=== PATIENT | female | born 1985 | race Caucasian/White ===

== ENCOUNTER 2017-06-22 20:26 | Emergency (ER) | payer OTHER ==
[~2017-06-22] VITALS: Ht 160 cm; Wt 132.0 kg
[~2017-06-22 20:26] MED LIST: ACE3 PO; IBU600 PO; IBUP800T37 PO; OXYC-865 PO
[2017-06-22] MEDS ORDERED: ANAPHYLAXIS KIT 1 EA ONE (20:33)
[2017-06-22] MEDS ORDERED: diphenhydrAMINE 50 MG/ML VIAL IVP ONE (20:35)
[2017-06-22] MEDS ORDERED: methylPREDNIS SUCC 125 MG/2ML IVP ONE (20:35)
[2017-06-22] MEDS ORDERED: FAMOTIDINE(*) 20MG/50ML PREMIX 50 ML IVPB ONE (20:35)
[2017-06-22] MEDS ORDERED: EPINEPHrine 0.3 MG SYR IM ONLY ONE (20:35)
[2017-06-22] MEDS ORDERED: NS(*) 0.9% 1000 ML BAG 1,000 ML IV ONE (20:35)
--- NOTE | 2017-06-22 20:47 | ER Report ---
History and Physical Time Seen By MD: 20:32 Hx. of Stated Complaint: PATIENT HAVING AN ALLERGIC REACTION, IT WAS ORIGINALLY LAST SATURDAY, SHE HAD STARTED WITH HER MOUTH AND THROAT, SHE SAW HER DR, THEY STARTED HER ON ANTIBIOTIC(CEPHELEXIN), THEN THE RASH GOT WORSE, THEY GAVE HER METHYLPREDNISONE AND STILL THE REACTION GOT WORSE, SHE HAS TROUBLE SWOLLING, FEELING SHORT OF BREATH, HAS RASH, HIVES, AND SWELLING. PATIENT HAS USING BENADRYL, CLARITIN AND CORTISONE CREAM. HPI/ROS CHIEF COMPLAINT: Allergic reaction HISTORY OF PRESENT ILLNESS: This is a 31 year old female. She said that this started last Saturday, 8 days ago. Rash throughout her body with itching. She started having soreness in mouth and throat. Started on Cephalexin and Medrol dosepack by her regular doctor. Rash has been intermittent and worsens tonight. She feels trouble swallowing. Feels short of breath. Worsened itching and hives tonight. Has been using benadryl and claritin and cortisone cream. No new foods , soaps, detergents, fabric softeners, makeup, chemicals, drugs, etc. They have been unable to tell what has caused this. No prior allergic reactions. REVIEW OF SYSTEMS: Constitutional: No fever or chills. Eyes: No vision changes. ENT: As above. Cardiovascular: No chest pain. No palpitations. Respiratory: As above. Gastrointestinal: No abdominal pain. Some nausea. Genitourinary: No dysuria. No frequency Musculoskeletal: No musculoskeletal pain. Skin: As above. Neurological: No numbness. No weakness. Allergies: Coded Allergies: cephalexin (Verified Allergy, Intermediate, THROAT SWELLING, HIVES, RASH. , 06/22/17) Home Meds Active Scripts Prednisone (PREDNISONE) 20 Mg Tablet, 60 MG PO QDAY for 4 Days, #12 TAB 0 Refills Prov:LUKE TEJADA MD 06/22/17 Discontinued Reported Medications Oxycodone Hcl/Acetaminophen (PERCOCET 5-325 MG TABLET) 1 Each Tablet, 1 - 2 EACH PO Q4H Y, #30 TAKE 1 TABLET WITH 1 TABLET TYLENOL FOR PAIN; OR FOR MORE SEVERE PAIN TAKE 2 TABLETS EVERY 4 HOURS NEEDED. 03/19/13 Ibuprofen (IBUPROFEN) 800 Mg Tablet, 1 TAB PO Q8H Y TAKE 800MG BY MOUTH EVERY EIGHT HOURS 03/19/13 Reviewed Nurses Notes: Yes Hx Smoking: No Exposure to Second Hand Smoke?: No Hx Substance Use Disorder: No Hx Alcohol Use: Yes (OCCASSIONALLY) Constitutional Vital Sign - Last 24 Hours 06/22/17 06/22/17 06/22/17 06/22/17 20:33 20:41 20:56 21:11 Temp 98.3 Pulse 109 102 93 90 Resp 16 B/P (MAP) 129/107 Pulse Ox 93 94 95 94 06/22/17 06/22/17 06/22/17 06/22/17 21:26 21:41 21:56 22:31 Pulse 91 89 96 92 Pulse Ox 91 91 90 90 06/22/17 06/22/17 06/22/17 06/22/17 23:01 23:06 23:21 23:34 Pulse 99 95 98 85 Resp 16 B/P (MAP) 138/88 (105) Pulse Ox 90 90 92 92 O2 Delivery Room Air Physical Exam General Appearance: The patient is alert. Anxious because of symptoms. Eyes: Pupils are equal, round. No pallor, injection or icterus. ENT: Mucous membranes are moist. Normal oral mucosa. Posterior oropharynx is normal. Neck: Supple and non tender. Respiratory: Breathing easily and unlabored. Lungs are clear to auscultation. Cardiovascular: Regular rate and rhythm. No murmurs, gallops or rubs. Normal capillary refill. Gastrointestinal: Abdomen is soft and non tender. Nondistended. Normal active bowel sounds. Neurological: Alert and oriented x3. No focal neurologic deficits. Skin: Urticarial lesions throughout the body, associated itching. Musculoskeletal: Extremities are nontender. Full range of motion. DIFFERENTIAL DIAGNOSIS: After history and physical exam, differential diagnosis was considered for allergic reaction. Will begin with an epinephrine IM injection and give other medications including Benadryl, Solu-Medrol and Pepcid IV along with IV fluids. Medical Decision Making Data Points Result Diagram: 06/22/17204006/22/172040 Laboratory Hematology Test 06/22/17 20:41 Red Blood Count 5.43 M/uL (4.17-5.56) Mean Corpuscular Volume 88.7 fL (80.0-96.0) Mean Corpuscular Hemoglobin 30.0 pg (26.0-33.0) Mean Corpuscular Hemoglobin Concent 33.9 g/dL (32.0-36.0) Red Cell Distribution Width 14.7 % (11.5-14.5) Mean Platelet Volume 9.9 fL (7.2-11.1) Neutrophils (%) (Auto) 85.6 % (39.4-72.5) Lymphocytes (%) (Auto) 8.7 % (17.6-49.6) Monocytes (%) (Auto) 4.3 % (4.1-12.4) Eosinophils (%) (Auto) 0.5 % (0.4-6.7) Basophils (%) (Auto) 0.9 % (0.3-1.4) Nucleated RBC Relative Count (auto) 0.1 /100WBC Neutrophils # (Auto) 15.5 K/uL (2.0-7.4) Lymphocytes # (Auto) 1.6 K/uL (1.3-3.6) Monocytes # (Auto) 0.8 K/uL (0.3-1.0) Eosinophils # (Auto) 0.1 K/uL (0.0-0.5) Basophils # (Auto) 0.2 K/uL (0.0-0.1) Nucleated RBC Absolute Count (auto) 0.02 K/uL Erythrocyte Sedimentation Rate 12 mm/HOUR (0-20) Sodium Level 136 mmol/L (137-145) Potassium Level 3.9 mmol/L (3.5-5.0) Chloride Level 103 mmol/L (98-107) Carbon Dioxide Level 22 mmol/L (22-31) Blood Urea Nitrogen 20 mg/dl (7-18) Creatinine 0.90 mg/dl (0.52-1.04) Glomerular Filtration Rate Calc > 60.0 Random Glucose 169 mg/dl (75-110) Calcium Level 8.6 mg/dl (8.4-10.2) Total Bilirubin 0.6 mg/dl (0.2-1.3) Aspartate Amino Transf (AST/SGOT) 19 U/L (0-35) Alanine Aminotransferase (ALT/SGPT) 34 U/L (0-56) Alkaline Phosphatase 99 U/L (0-126) C-Reactive Protein 8.8 mg/dl (<1.0) Total Protein 6.7 gm/dl (6.3-8.2) Albumin 3.6 g/dl (3.5-5.0) Human Chorionic Gonadotropin, Qual Negative (NEGATIVE) Chemistry Test 06/22/17 20:41 White Blood Count 18.1 k/uL (4.5-11.0) Red Blood Count 5.43 M/uL (4.17-5.56) Hemoglobin 16.3 g/dL (12.0-16.0) Hematocrit 48.2 % (34.0-47.0) Mean Corpuscular Volume 88.7 fL (80.0-96.0) Mean Corpuscular Hemoglobin 30.0 pg (26.0-33.0) Mean Corpuscular Hemoglobin Concent 33.9 g/dL (32.0-36.0) Red Cell Distribution Width 14.7 % (11.5-14.5) Platelet Count 249 K/uL (150-450) Mean Platelet Volume 9.9 fL (7.2-11.1) Neutrophils (%) (Auto) 85.6 % (39.4-72.5) Lymphocytes (%) (Auto) 8.7 % (17.6-49.6) Monocytes (%) (Auto) 4.3 % (4.1-12.4) Eosinophils (%) (Auto) 0.5 % (0.4-6.7) Basophils (%) (Auto) 0.9 % (0.3-1.4) Nucleated RBC Relative Count (auto) 0.1 /100WBC Neutrophils # (Auto) 15.5 K/uL (2.0-7.4) Lymphocytes # (Auto) 1.6 K/uL (1.3-3.6) Monocytes # (Auto) 0.8 K/uL (0.3-1.0) Eosinophils # (Auto) 0.1 K/uL (0.0-0.5) Basophils # (Auto) 0.2 K/uL (0.0-0.1) Nucleated RBC Absolute Count (auto) 0.02 K/uL Erythrocyte Sedimentation Rate 12 mm/HOUR (0-20) Glomerular Filtration Rate Calc > 60.0 Calcium Level 8.6 mg/dl (8.4-10.2) Total Bilirubin 0.6 mg/dl (0.2-1.3) Aspartate Amino Transf (AST/SGOT) 19 U/L (0-35) Alanine Aminotransferase (ALT/SGPT) 34 U/L (0-56) Alkaline Phosphatase 99 U/L (0-126) C-Reactive Protein 8.8 mg/dl (<1.0) Total Protein 6.7 gm/dl (6.3-8.2) Albumin 3.6 g/dl (3.5-5.0) Human Chorionic Gonadotropin, Qual Negative (NEGATIVE) EKG/Imaging Imaging CT of the chest, with contrast: Indication: Difficulty breathing and swallowing. Technique: Helical CT was performed through the chest following IV contrast enhancement with 75 cc of Isovue 370. Multiplanar reconstructions are reviewed. One of the following dose optimization techniques was utilized in the performance of this exam: Automated exposure control; adjustment of the mA and/ or kV according to the patient's size; or use of an iterative reconstruction technique. Specific details can be referenced in the facility's radiology CT exam operational policy. Comparison: None. Lung quinones: There is a tiny peripheral calcification in the right upper lobe, consistent with granuloma. No other nodular opacities are identified. There are minimal linear atelectatic opacities at the lung bases. There are no signs of parenchymal consolidation or volume loss. The trachea and large central airways appear normal. Pleural spaces: There is no evidence of effusion, thickening, calcification, or mass. Mediastinum: There is no evidence of mass, lymph node enlargement, or fluid. There may be a small hiatal hernia. Heart and vascular structures: Within normal limits. Skeletal structures: There is mild degenerative disc disease in the mid and lower thoracic spine. No acute skeletal deformity is identified. Upper abdomen: Unremarkable, as visualized. IMPRESSION: Unremarkable study. Report Dictated By: Cruz Ray MD at 06/22/2017 10:[address] of the neck with contrast: Indication: Difficulty breathing and swallowing. Technique: Helical CT was performed through the neck following IV contrast enhancement with 75 cc of Isovue-370. Multiplanar reconstructions are reviewed. One of the following dose optimization techniques was utilized in the performance of this exam: Automated exposure control; adjustment of the mA and/ or kV according to the patient's size; or use of an iterative reconstruction technique. Specific details can be referenced in the facility's radiology CT exam operational policy. Comparison: None. Findings: There is no evidence of soft tissue mass, fluid collection, or cyst. A few unenlarged lymph nodes are present on both sides of the neck. There is narrowing of the airway at the level of the aryepiglottic folds, which may be related to infection. The true vocal cords appear symmetrical and unremarkable. The epiglottis and tonsils are unremarkable, as visualized. The airway is otherwise unremarkable. The parotid, submandibular, and thyroid glands appear symmetrical and unremarkable. There is uniform enhancement of the visualized vascular structures. The skeletal structures are well mineralized and intact. The paranasal sinuses and mastoid air cells are clear. No fluid or soft tissue abnormality is observed in the auditory canals or middle ear cavities. Impression: There is narrowing of the airway at the level of the aryepiglottic folds, which may be related to infection. Direct visualization is recommended for further evaluation. Report Dictated By: Cruz Ray MD at 06/22/2017 10:41 PM ED Course/Re-evaluation Clinical Indication for ER IV: Hydration, IV Access ED Course Labs show a pre-renal pattern with the BUN/Cr ration being elevated. Recommended increased fluid intake. Leukocytosis likely due to current steroid use. All symptoms improved except for the difficulty swallowing. Rash has mostly resolved. Itching better. No shortness of breath. Still feels fullness of neck while swallowing. Because of this CT scan of chest and neck was obtained with some swelling in the area of epiglottis and vocal cords as noted above. Discussed this with the patient. Will continue on Prednisone, Benadryl, Claritin, Pepcid. Hold the Cephalexin. This may be a viral infection with allergic type reaction and will need to run its course. Recommended consideration of product specialist evaluation. ENT evaluation for the swelling in the throat recommended. Decision to Disposition Date: Jun 22, 2017 Decision to Disposition Time: 23:24 Depart Departure Latest Vital Signs Vital Signs Date Time Temp Pulse Resp B/P (MAP) Pulse Ox O2 Delivery O2 Flow Rate FiO2 06/22/17 23:34 85 16 138/88 (105) 92 Room Air 06/22/17 20:33 98.3 Impression: Primary Impression: Allergic reaction Condition: Improved Disposition: HOME OR SELF-CARE Referrals: MARK BINGHAM CNM (PCP) New Scripts Prednisone (PREDNISONE) 20 Mg Tablet 60 MG PO QDAY for 4 Days, #12 TAB 0 Refills Prov: LUKE TEJADA MD 06/22/17 Patient Instructions: General Allergic Reaction (ED) Additional Instructions: Take Prednisone 20mg tablets, take 3 tablets once a day for 4 more days. Keep taking Benadryl 25mg over the counter tablets, 1-2 tablets every 6 hours as needed for itching. You can also use Claritin twice a day. Take Pepcid 20mg over the counter tablets twice a day. Follow-up with Dr. Alejo. Consider follow-up evaluations with an product specialist and with ENT so that they can evaluated the swelling in the throat area seen on CT scan. Return to the ER for worsening symptoms over the weekend. Problem Qualifiers Primary Impression: Allergic reaction Encounter type: initial encounter Qualified Codes: T78.40XA - Allergy, unspecified, initial encounter LUKE TEJADA MD Jun 22, 2017 20:46
[2017-06-22] MEDS ORDERED: ONDANSETRON 4 MG/2 ML VIAL ONE (20:53)
[2017-06-22] MEDS ORDERED: ONDANSETRON 4 MG/2 ML VIAL IVP ONE (20:55)
[2017-06-22 21:03] LABS: PLATELET COUNT, AUTOMATED 249 K/uL (150-450)
[2017-06-22] MEDS ORDERED: IOPAMIDOL 76% 75 ML INFUS BTL 75 ML ONE (21:48)
[2017-06-22] MEDS ORDERED: NS 0.9% 20 ML SDV 60 ML ONE (21:49)
--- NOTE | 2017-06-22 22:58 | RADIOLOGY IMAGING REPORT ---
FACILITY: PATIENT NAME: Jayashree Sierra : 1985 MR: [id number] V: [id number] EXAM DATE: ORDERING PHYSICIAN: LUKE TEJADA TECHNOLOGIST: Location: [facility] - [place] Patient: Jayashree Sierra : 1985 Visit/Account:[id number] Date of Sevice: 06/22/2017 CT of the neck with contrast: Indication: Difficulty breathing and swallowing. Technique: Helical CT was performed through the neck following IV contrast enhancement with 75 cc of Isovue-370. Multiplanar reconstructions are reviewed. One of the following dose optimization techniques was utilized in the performance of this exam: Autom ated exposure control; adjustment of the mA and/or kV according to the patient's size; or use of an i terative reconstruction technique. Specific details can be referenced in the facility's radiology C T exam operational policy. Comparison: None. Findings: There is no evidence of soft tissue mass, fluid collection, or cyst. A few unenlarged lymph nodes are present on both sides of the neck. There is narrowing of the airway at the level of the ar yepiglottic folds, which may be related to infection. The true vocal cords appear symmetrical and unr emarkable. The epiglottis and tonsils are unremarkable, as visualized. The airway is otherwise unrema rkable. The parotid, submandibular, and thyroid glands appear symmetrical and unremarkable. There is uniform enhancement of the visualized vascular structures. The skeletal structures are well mineralized and i ntact. The paranasal sinuses and mastoid air cells are clear. No fluid or soft tissue abnormality is observed in the auditory canals or middle ear cavities. Impression: There is narrowing of the airway at the level of the aryepiglottic folds, which may be re lated to infection. Direct visualization is recommended for further evaluation. Report Dictated By: Cruz Ray MD at 06/22/2017 10:41 PM Report E-Signed By: Cruz Ray MD at 06/22/2017 10:54 PM WSN:[id number]
--- NOTE | 2017-06-22 23:04 | RADIOLOGY IMAGING REPORT ---
[place] [facility] [place] NAME: Jayashree Sierra : 1985 MR: [id number] V: [id number] EXAM DATE: ORDERING PHYSICIAN: LUKE TEJADA TECHNOLOGIST: Location: [facility] - [place] Patient: Jayashree Sierra : 1985 Visit/Account:[id number] Date of Sevice: 06/22/2017 CT of the chest, with contrast: Indication: Difficulty breathing and swallowing. Technique: Helical CT was performed through the chest following IV contrast enhancement with 75 cc of Isovue 370. Multiplanar reconstructions are reviewed. One of the following dose optimization techniques was utilized in the performance of this exam: Autom ated exposure control; adjustment of the mA and/or kV according to the patient's size; or use of an i terative reconstruction technique. Specific details can be referenced in the facility's radiology C T exam operational policy. Comparison: None. Lung quinones: There is a tiny peripheral calcification in the right upper lobe, consistent with granul rossana. No other nodular opacities are identified. There are minimal linear atelectatic opacities at the lung bases. There are no signs of parenchymal consolidation or volume loss. The trachea and large central airways appear normal. Pleural spaces: There is no evidence of effusion, thickening, calcification, or mass. Mediastinum: There is no evidence of mass, lymph node enlargement, or fluid. There may be a small hia jorden hernia. Heart and vascular structures: Within normal limits. Skeletal structures: There is mild degenerative disc disease in the mid and lower thoracic spine. No acute skeletal deformity is identified. Upper abdomen: Unremarkable, as visualized. IMPRESSION: Unremarkable study. Report Dictated By: Cruz Ray MD at 06/22/2017 10:54 PM Report E-Signed By: Cruz Ray MD at 06/22/2017 11:01 PM [id number]
[2017-06-22] MEDS ORDERED: PRED20TA6 PO (23:26)
[2017-06-22] MEDS ORDERED: predniSONE 20 MG TAB PO ONE (23:30)
[2017-06-22 23:34] VITALS: BP 138/88
== END 2017-06-22 23:35 | disposition home or self-care (01) ==
LOC: ER 20:35
DX: T78.40XA Allergy, unspecified, initial encounter (principal); R13.10 Dysphagia, unspecified; R06.02 Shortness of breath; R11.0 Nausea; J02.9 Acute pharyngitis, unspecified
CPT/HCPCS: 70491; 71260; 84703; 85025; 85651; 86140; 96361; 96372; 96374; 96375; 99284; J0171; J1200; J2405; J2930; J3490; J7030; J7050; J7512; Q9967; 82040; 82247; 82310; 82374; 82435; 82565; 82947; 84075; 84132; 84155; 84295; 84450; 84460; 84520